=== PATIENT | female | born 1990 | race Caucasian/White ===

== ENCOUNTER 2017-10-14 16:55 | Emergency (ER) | payer OTHER ==
[2017-10-14] MEDS ORDERED: ONDANSETRON HCL INJ/PF 4 MG/2 ML SDV IV ONE (17:09)
[2017-10-14] MEDS ORDERED: KETOROLAC TROMETHAMINE INJ/PF 30 MG/1 ML SDV IV ONE (17:09)
[2017-10-14] MEDS ORDERED: NORMAL SALINE 1000 ML 1,000 ML IV ONE (17:10)
--- NOTE | 2017-10-14 17:12 | ER Document Report ---
ED Medical Screen (RME) - General Chief Complaint: Flank Pain Stated Complaint: FLANK PAIN Time Seen by Provider: 10/14/17 17:09 Notes: 27 years old female presents today with left flank pain for the last 2 days associated with nausea. Denies any dysuria frequency urgency. Denies any fever chills. She says the pain is so severe, and laying down the floor complaining of pain. Denies any drug abuse Denies taking any pain medications. TRAVEL OUTSIDE OF THE [place] IN LAST 30 DAYS: No - Related Data Allergies/Adverse Reactions: No Known Allergies Allergy (Verified 05/30/13 19:10) Past Medical History - Past Medical History Cardiac Medical History: Denies: Hx Coronary Artery Disease, Hx DVT, Hx Hypertension Pulmonary Medical History: Denies: Hx Asthma, Hx Bronchitis Neurological Medical History: Denies: Hx Cerebrovascular Accident, Hx Migraine, Hx Seizures Endocrine Medical History: Denies: Hx Diabetes Mellitus Type 2, Hx Hypothyroidism Renal/ Medical History: Reports: Hx Kidney Stones. Denies: Hx Renal Insufficiency GI Medical History: Denies: Hx Gastritis, Hx Gastroesophageal Reflux Disease, Hx Hepatitis Infectious Medical History: Denies: Hx Hepatitis Past Surgical History: Reports: Hx Section, Hx Kidney (Renal Surgery), Hx Tubal Ligation - Immunizations Hx Diphtheria, Pertussis, Tetanus Vaccination: No Physical Exam - Vital signs Vitals: Temp Pulse Resp BP Pulse Ox 98.3 F 100 16 104/89 H 100 10/14/17 17:01 10/14/17 17:01 10/14/17 17:01 10/14/17 17:01 10/14/17 17:01 Course - Vital Signs Vital signs: Temp Pulse Resp BP Pulse Ox 98.3 F 100 16 104/89 H 100 10/14/17 17:01 10/14/17 17:01 10/14/17 17:01 10/14/17 17:01 10/14/17 17:01
--- NOTE | 2017-10-14 17:19 | ER Document Report ---
ED GI/ - General Chief Complaint: Flank Pain Stated Complaint: FLANK PAIN Time Seen by Provider: 10/14/17 17:09 TRAVEL OUTSIDE OF THE [place] IN LAST 30 DAYS: No - Related Data Allergies/Adverse Reactions: No Known Allergies Allergy (Verified 05/30/13 19:10) Past Medical History - Social History Smoking Status: Unknown if Ever Smoked Family History: Reviewed & Not Pertinent Patient has suicidal ideation: No Patient has homicidal ideation: No - Past Medical History Cardiac Medical History: Denies: Hx Coronary Artery Disease, Hx DVT, Hx Hypertension Pulmonary Medical History: Denies: Hx Asthma, Hx Bronchitis Neurological Medical History: Denies: Hx Cerebrovascular Accident, Hx Migraine, Hx Seizures Endocrine Medical History: Denies: Hx Diabetes Mellitus Type 2, Hx Hypothyroidism Renal/ Medical History: Reports: Hx Kidney Stones. Denies: Hx Peritoneal Dialysis, Hx Renal Insufficiency GI Medical History: Denies: Hx Gastritis, Hx Gastroesophageal Reflux Disease, Hx Hepatitis Infectious Medical History: Denies: Hx Hepatitis Past Surgical History: Reports: Hx Section, Hx Kidney (Renal Surgery), Hx Tubal Ligation - Immunizations Hx Diphtheria, Pertussis, Tetanus Vaccination: No Physical Exam - Vital signs Vitals: Temp Pulse Resp BP Pulse Ox 98.3 F 100 16 104/89 H 100 10/14/17 17:01 10/14/17 17:01 10/14/17 17:01 10/14/17 17:01 10/14/17 17:01 Course - Vital Signs Vital signs: Temp Pulse Resp BP Pulse Ox 98.3 F 100 16 104/89 H 100 10/14/17 17:01 10/14/17 17:01 10/14/17 17:01 10/14/17 17:01 10/14/17 17:01
[2017-10-14] MEDS ORDERED: KETOROLAC TROMETHAMINE 60 MG/2 ML SDV IM ONE (17:36)
[2017-10-14] MEDS ORDERED: DIAZEPAM 5 MG TABLET PO ONE (17:39)
--- NOTE | 2017-10-14 17:40 | ER Document Report ---
HPI - HPI Patient complains to provider of: Right low back pain Onset: This morning Onset/Duration: Sudden Pain Level: 5 Context: 27-year-old female stepped forward with a right foot and felt a sudden sharp pain in her right low back that radiates down the whole length of her leg. No saddle anesthesia. No fever or chills. No nausea vomiting or diarrhea. She does have a history of a kidney stone but there is no dysuria frequency or urgency. Pain is worse with movement. Associated Symptoms: None Exacerbated by: Movement Relieved by: Denies Similar symptoms previously: No Recently seen / treated by doctor: No - ROS ROS below otherwise negative: Yes Systems Reviewed and Negative: Yes All other systems reviewed and negative - REPRODUCTIVE Reproductive: DENIES: : - DERM Skin Color: Normal Past Medical History - General Information source: Patient - Social History Smoking Status: Current Every Day Smoker Frequency of alcohol use: None Drug Abuse: None Occupation: Unemployed Lives with: Family Family History: Reviewed & Not Pertinent Patient has suicidal ideation: No Patient has homicidal ideation: No Renal/ Medical History: Reports: Hx Kidney Stones Past Surgical History: Reports: Hx Section, Hx Kidney (Renal Surgery), Hx Tubal Ligation - Immunizations Hx Diphtheria, Pertussis, Tetanus Vaccination: No Vertical Provider Document - CONSTITUTIONAL Agree With Documented VS: Yes Exam Limitations: No Limitations General Appearance: Mild Distress - Patient is dramatic and asking her mother to help her to move - INFECTION CONTROL TRAVEL OUTSIDE OF THE [place] IN LAST 30 DAYS: No - HEENT HEENT: Normocephalic - NECK Neck: Supple - RESPIRATORY Respiratory: Breath Sounds Normal, No Respiratory Distress - CARDIOVASCULAR Cardiovascular: Regular Rate, Regular Rhythm - GI/ABDOMEN Gastrointestinal: Abdomen Soft, Abdomen Non-Tender - BACK Back: Normal Inspection Notes: no rash - MUSCULOSKELETAL/EXTREMETIES Musculoskeletal/Extremeties: MAEW, FROM, Tender - right SI joint tender into buttocks - NEURO Level of Consciousness: Awake, Alert Motor/Sensory: No Motor Deficit, No Sensory Deficit Deep Tendon Reflexes: 2+ - marvin ankle and patellar - DERM Integumentary: No Rash Course - Re-evaluation Re-evalutation: 10/14/17 18:10 Patient feels a lot better after the medication. I also showed her how to position to decrease the pain. When I used traction on her right leg it reduces the pain even further. - Vital Signs Vital signs: Temp Pulse Resp BP Pulse Ox 98.3 F 100 16 104/89 H 100 10/14/17 17:01 10/14/17 17:01 10/14/17 17:01 10/14/17 17:01 10/14/17 17:01 Discharge - Discharge Clinical Impression: Right sacral ileitis, Sciatica Condition: Good Disposition: HOME, SELF-CARE Instructions: Low Back Pain ([facility]), Muscle Relaxers ([facility]), Ibuprofen (General) ( [facility]), Acetaminophen, Warm Packs ([facility]), Chiropractor Additional Instructions: Tylenol up to 4000 mg per day Motrin 800 mg 3 times a day Warm compress Stretching exercises as discussed Flexeril up to 3 times a day as needed for muscle relaxer Return to the emergency room for any worsening of the symptoms Prescriptions: Ibuprofen [Motrin 800 mg Tablet] 800 mg PO Q8HP PRN #30 tab PRN Reason: Cyclobenzaprine HCl [Flexeril 10 Mg Tablet] 10 mg PO TIDP PRN #20 tablet PRN Reason: Referrals: MADHU MCARTHUR, PROFESS[employer]-C [Primary Care Provider] - Follow up as needed GABO E[facility]INGTON [place] [CHIROPRACTOR] - Follow up as needed
[2017-10-14 19:05] VITALS: BP 98/67
== END 2017-10-14 19:07 | disposition home or self-care (01) ==
LOC: ER 16:55
DX: M46.1 Sacroiliitis, not elsewhere classified (principal); M54.40 Lumbago with sciatica, unspecified side; F17.200 Nicotine dependence, unspecified, uncomplicated
CPT/HCPCS: 99283; 96372; J1885

== ENCOUNTER 2017-10-16 05:37 | Emergency (ER) | payer OTHER ==
[2017-10-16] MEDS ORDERED: MORPHINE SULFATE 10 MG/ML INJ IV ONE (06:42)
[2017-10-16] MEDS ORDERED: ONDANSETRON HCL INJ/PF 4 MG/2 ML SDV IV ONE (06:42)
[2017-10-16] MEDS ORDERED: NORMAL SALINE 1000 ML 1,000 ML IV ONE (06:42)
[2017-10-16] MEDS ORDERED: ACETAMINOPHEN 325 MG TABLET PO ONE (06:43)
[2017-10-16 07:01] LABS: ABSOLUTE LYMPHOCYTES (AUTO) 0.3 10^3/uL (0.5-4.7); ABSOLUTE MONOCYTES (AUTO) 0.9 10^3/uL (0.1-1.4); ABSOLUTE NEUT (AUTO) 12.7 10^3/uL (1.7-8.2); BASOPHILS % (AUTO) 0.2 % (0-2); HEMATOCRIT 39.7 % (36.0-47.0); HEMOGLOBIN 13.6 g/dL (12.0-15.5); LYMPHOCYTES % (AUTO) 2.2 % (13-45); MEAN CORPUSCULAR HEMOGLOBIN 30.2 pg (27.0-33.4); MEAN CORPUSCULAR HGB CONC 34.3 g/dL (32.0-36.0); MEAN CORPUSCULAR VOLUME 88 fl (80-97); MONOCYTES % (AUTO) 6.7 % (3-13); PLATELET COUNT 115 10^3/uL (150-450); RED CELL DISTRIBUTION WIDTH 14.6 % (11.5-14.0); SEGMENTED NEUTROPHILS % (AUTO) 90.9 % (42-78); TOTAL CELLS COUNTED % (AUTO) 100 %
--- NOTE | 2017-10-16 07:02 | ER Document Report ---
ED General - General Chief Complaint: Nausea/Vomiting Stated Complaint: VOMITING Time Seen by Provider: 10/16/17 06:41 TRAVEL OUTSIDE OF THE [place] IN LAST 30 DAYS: No - HPI Notes: 27-year-old female presents to the ER complaining of fever back pain headache. The patient stated about Saturday at 2 AM she began vomiting. She has had some pain in her back she states of her on her kidney. She is at increased urinary frequency. She has had nausea. Seen in the ER and diagnosed with sciatic nerve pain. However the patient still continued to have lower back pain and developed a fever. She also complains of headache diffuse muscle aches all over. Nausea vomiting a lot of abdominal cramping. She does have a history of kidney stones. History of kidney infections. She is very anxious. - Related Data Allergies/Adverse Reactions: No Known Allergies Allergy (Verified 05/30/13 19:10) Past Medical History - Social History Smoking Status: Unknown if Ever Smoked Family History: Reviewed & Not Pertinent Patient has suicidal ideation: No Patient has homicidal ideation: No - Past Medical History Cardiac Medical History: Denies: Hx Coronary Artery Disease, Hx DVT, Hx Hypertension Pulmonary Medical History: Denies: Hx Asthma, Hx Bronchitis Neurological Medical History: Denies: Hx Cerebrovascular Accident, Hx Migraine, Hx Seizures Endocrine Medical History: Denies: Hx Diabetes Mellitus Type 2, Hx Hypothyroidism Renal/ Medical History: Reports: Hx Kidney Stones. Denies: Hx Peritoneal Dialysis, Hx Renal Insufficiency GI Medical History: Denies: Hx Gastritis, Hx Gastroesophageal Reflux Disease, Hx Hepatitis Infectious Medical History: Denies: Hx Hepatitis Past Surgical History: Reports: Hx Section, Hx Kidney (Renal Surgery), Hx Tubal Ligation - Immunizations Hx Diphtheria, Pertussis, Tetanus Vaccination: No Review of Systems - Review of Systems Constitutional: Chills, Fever Cardiovascular: denies: Chest pain, Dyspnea Respiratory: denies: Cough, Hemoptysis, Short of breath, Wheezing Gastrointestinal: Abdomen distended, Abdominal pain, Nausea, Vomiting. denies: Diarrhea Genitourinary: Frequency, Urgency Female Genitourinary: denies: Heavy/abnormal periods, Vaginal bleeding, Vaginal odor Musculoskeletal: Muscle pain Neurological/Psychological: Headaches -: Yes All other systems reviewed and negative Physical Exam - Vital signs Vitals: Temp Pulse Resp BP Pulse Ox 100.6 F H 105 H 18 116/67 98 10/16/17 05:43 10/16/17 05:43 10/16/17 05:43 10/16/17 05:43 10/16/17 05:43 - Notes Notes: GENERAL_APPEARANCE: well_nourished, alert, cooperative, appears uncomfortable crying tearful VITALS: reviewed, see vital signs table. HEAD: no_swelling\tenderness on the head. EYES: PERRL, EOMI, conjunctiva_clear. NOSE: no_nasal_discharge. MOUTH: Slight decreased moisture. THROAT: no_throat_inflammation, no_airway_obstruction. no_lymphadenopathy NECK: supple, no_neck_tenderness, (-)thyromegaly. BACK: Right CVA_back_tenderness. CHEST_WALL: no_chest_tenderness. LUNGS: no_wheezing, no_rales, no_rhonchi, (-)accessory muscle use, good air exchange bilateral. HEART: normal_rate, normal_rhythm, normal_S1, normal_S2, (-)S3, (-)S4, no_ murmur, no_rub. ABDOMEN: normal_BS, soft, no_abd_tenderness, (-)guarding, (-)rebound, no_ organomegaly, no_abd_masses. EXTREMITIES:good pulses in all_extremities, no_swelling\tenderness in the extremities, no_edema. SKIN: warm, dry, good_color, no_rash. MENTAL_STATUS: speech_clear, oriented_X_3, anxious histrionic_affect, responds_ appropriately to questions. NEURO: Neg Motor or Sensory Deficits on exam, CN 2-12 intact, DTR 2+ symmetric x 4, No cerbellar signs Course - Re-evaluation Re-evalutation: 10/16/17 07:01 27-year-old female comes in with fever back pain headache muscle aches. Patient had increased urinary symptoms. Concern for pyelonephritis with sepsis. Will start the sepsis workup IV fluids. 10/16/17 09:47 Patient is found to have pyelonephritis. Patient was given IV antibiotics Rocephin. Something for pain she will be discharged home with antibiotics and something for pain. She is not vomiting and hopefully will be able to keep down medications. She did have a fever here does not appear septic. Lactic acid is normal. - Vital Signs Vital signs: Temp Pulse Resp BP Pulse Ox 98.9 F 105 H 13 108/69 97 10/16/17 09:27 10/16/17 05:43 10/16/17 07:04 10/16/17 07:04 10/16/17 07:04 - Laboratory Result Diagrams: 10/16/17 06:30 10/16/17 06:30 Laboratory results interpreted by me: 10/16/17 10/16/17 10/16/17 06:30 06:30 07:45 WBC 14.0 H RDW 14.6 H Plt Count 115 L Seg Neutrophils % 90.9 H Lymphocytes % 2.2 L Absolute Neutrophils 12.7 H Absolute Lymphocytes 0.3 L Sodium 135.5 L Carbon Dioxide 18 L Glucose 143 H Total Bilirubin 3.0 H Direct Bilirubin 0.5 H Urine Protein 30 H Urine Ketones TRACE H Urine Blood LARGE H Urine Urobilinogen 4.0 H Ur Leukocyte Esterase MODERATE H - Diagnostic Test Radiology reviewed: Image reviewed Radiology results interpreted by me: 10/16/17 09:47 Chest X-Ray 10/16/17 06:42 IMPRESSION: No acute cardiopulmonary findings. 10/16/17 09:47 CT scan shows right perinephric stranding likely due to pyelonephritis or passed stone - no stone was seen in the urinary tract. Discharge - Discharge Clinical Impression: Pyelonephritis Condition: Good Disposition: HOME, SELF-CARE Instructions: Pyelonephritis ([facility]) Additional Instructions: If not improving 24 hours return to the emergency department. If worse return as soon as possible otherwise follow-up with your family doctor Prescriptions: Ondansetron [Zofran Odt 4 mg Tablet] 1 - 2 tab PO Q4HP PRN #10 tab.rapdis PRN Reason: Cefuroxime Axetil [Ceftin 500 mg Tablet] 1 tab PO BID #20 tablet Hydrocodone/Acetaminophen [Salcha 5-325 Tablet] 1 - 2 tab PO ASDIR PRN #15 tab PRN Reason: Referrals: MADHU MCARTHUR FNP-C [Primary Care Provider] - Follow up as needed
[2017-10-16 07:04] LABS: ALANINE AMINOTRANSFERASE 27 U/L (9-52); ALBUMIN 3.6 g/dL (3.5-5.0); ALKALINE PHOSPHATASE 72 U/L (38-126); ANION GAP 16 (5-19); ASPARTATE AMINO TRANSFERASE 14 U/L (14-36); BILIRUBIN,DIRECT 0.5 mg/dL (0.0-0.4); BLOOD UREA NITROGEN 11 mg/dL (7-20); CALCIUM 8.8 mg/dL (8.4-10.2); CARBON DIOXIDE 18 mmol/L (22-30); CHLORIDE 102 mmol/L (98-107); CREATINE KINASE 127 U/L (30-135); GLUCOSE 143 mg/dL (75-110); POTASSIUM 3.9 mmol/L (3.6-5.0); SODIUM 135.5 mmol/L (137-145); TOTAL PROTEIN 6.6 g/dL (6.3-8.2)
--- NOTE | 2017-10-16 07:21 | RADIOLOGY REPORT (SQ) ---
EXAM DESCRIPTION: XR CHEST 1 VIEW COMPLETED DATE/TME: 10/16/2017 06:42 CLINICAL HISTORY: 27 years Female, fever COMPARISON: None. NUMBER OF VIEWS/TECHNIQUE: 1/AP FINDINGS: Adequate lung volume, clear parenchyma, normal cardiac silhouette, and intact bony thorax. IMPRESSION: No acute cardiopulmonary findings.
--- NOTE | 2017-10-16 07:50 | RADIOLOGY REPORT (SQ) ---
EXAM DESCRIPTION: CT ABDOMEN PELVIS WITHOUT IV CONTRAST COMPLETED DATE/TME: 10/16/2017 06:42 CLINICAL HISTORY: 27 years Female, fever(103) headache,n/v right sciatic nerve pain, lower abd pain. Comparison: None. Technique: No contrast. Coronal and sagittal reformat. This exam was performed according to our departmental dose-optimization program, which includes automated exposure control, adjustment of the mA and/or kV according to patient size and/or use of iterative reconstruction technique.[facility]: Dose Right [facility]: CareDose [facility]: Dose Right [facility]: Teradose 4D [facility]: [employer] LIMITATIONS: None Findings: Asymmetric mild diffuse engorgement of the right kidney and minimal right perinephric fat stranding with absence of a previous 0.2 right renal stone as compared with prior exam from May 2013 which may indicate a recently passed stone. No hydronephrosis and no hydroureter. No current radiopaque stone of the right renal collecting system. Punctate calyceal/renal stone of the left inferior renal pole. Mild fluid dilation of the ileum in the right lower abdomen measures up to 3.3 cm in diameter. Bilateral tubal ligation clips. No evidence of appendicitis. Likely normal appendix partially discerned. No significant free fluid. No free air. Unenhanced lower thorax, abdominopelvic structures, and musculoskeleton appear otherwise grossly unremarkable. Impression: 1. Prominent right kidney which may indicate a recently passed stone. Differential diagnosis includes right pyelonephritis. 2. Mild focal ileus of the ileum.
[2017-10-16] MEDS ORDERED: CEFTRIAXONE 1 GM/D5W RTU 50 ML IV ONE (08:15)
[2017-10-16 08:28] LABS: APPEARANCE,URINE SLIGHTLY-CLOUDY; BILIRUBIN,URINE NEGATIVE (NEGATIVE); COLOR,URINE YELLOW; GLUCOSE, URINE NEGATIVE (NEGATIVE); KETONES,URINE TRACE mg/dL (NEGATIVE); LEUKOCYTE ESTERASE,URINE MODERATE (NEGATIVE); NITRITE,URINE NEGATIVE (NEGATIVE); PROTEIN,URINE 30 mg/dL (NEGATIVE); URINE SPECIFIC GRAVITY 1.005
[2017-10-16] MEDS ORDERED: CEFTRIAXONE SODIUM 1,000 MG in NORMAL SALINE 50 ML IV ONE (09:00)
[2017-10-16 10:26] VITALS: BP 99/66
== END 2017-10-16 10:26 | disposition home or self-care (01) ==
LOC: ER 05:37
DX: N12 Tubulo-interstitial nephritis, not specified as acute or chronic (principal); R11.2 Nausea with vomiting, unspecified; N23 Unspecified renal colic; M54.5 Low back pain; R14.0 Abdominal distension (gaseous); R51 Headache; R50.9 Fever, unspecified; Z87.442 Personal history of urinary calculi; Z98.51 Tubal ligation status
CPT/HCPCS: 99284; 96361; 96375; 96365; 36415; 87040; 87086; 82550; 85025; 87077; 87088; 80053; 81001; 87186; 83605; 71045; 74176; J2270; J0696; J2405; J7030

== ENCOUNTER 2017-10-16 18:58 | Inpatient (IN) | payer OTHER ==
[2017-10-16] MEDS ORDERED: FENTANYL CITRATE INJ/PF 100 MCG/2 ML AMPUL IV ONE (20:17)
[2017-10-16] MEDS ORDERED: NORMAL SALINE 1000 ML 1,000 ML IV ONE (20:17)
--- NOTE | 2017-10-16 20:51 | ER Document Report ---
ED Medical Screen (RME) - General Chief Complaint: Flank Pain Stated Complaint: FLANK PAIN Time Seen by Provider: 10/16/17 20:13 Mode of Arrival: Wheelchair TRAVEL OUTSIDE OF THE [place] IN LAST 30 DAYS: No - HPI Patient complains to provider of: Worsening pain and inability to tolerate p.o. Quality of pain: Fullness, Pressure Severity: Mild Pain Level: 5 - Related Data Allergies/Adverse Reactions: No Known Allergies Allergy (Verified 05/30/13 19:10) Past Medical History - Past Medical History Cardiac Medical History: Denies: Hx Coronary Artery Disease, Hx DVT, Hx Hypertension Pulmonary Medical History: Denies: Hx Asthma, Hx Bronchitis Neurological Medical History: Denies: Hx Cerebrovascular Accident, Hx Migraine, Hx Seizures Endocrine Medical History: Denies: Hx Diabetes Mellitus Type 2, Hx Hypothyroidism Renal/ Medical History: Reports: Hx Kidney Stones. Denies: Hx Peritoneal Dialysis, Hx Renal Insufficiency GI Medical History: Denies: Hx Gastritis, Hx Gastroesophageal Reflux Disease, Hx Hepatitis Infectious Medical History: Denies: Hx Hepatitis Past Surgical History: Reports: Hx Section, Hx Kidney (Renal Surgery), Hx Tubal Ligation - Immunizations Hx Diphtheria, Pertussis, Tetanus Vaccination: No Physical Exam - Vital signs Vitals: Temp Pulse Resp BP Pulse Ox 99.9 F 91 20 112/71 98 10/16/17 19:14 10/16/17 19:14 10/16/17 19:14 10/16/17 19:14 10/16/17 19:14 - Notes Notes: Uncomfortable appearing 27-year-old female Modestly diaphoretic Diffuse tenderness in the abdomen is profound tenderness to percussion Course - Re-evaluation Re-evalutation: 10/16/17 21:36 This 27-year-old female was evaluated earlier in the day for the second time for evaluation of flank and abdominal pain seems likely that her treatment for pyelonephritis was appropriate though she is continued to have worsening abdominal pain diaphoresis at home since discharge. Given that she is continuing to have pain and inability to tolerate p.o. we will plan for more aggressive evaluation at this time including another marker of infections. She did have an elevated bilirubin and does have abdominal pain with vomiting as such will consider possible biliary etiology as such we will obtain right upper quadrant ultrasound the patient. Will administer fentanyl for pain. Will obtain another urinalysis. She does have a history of stones which have been effective in the past but she did have a CT which did not demonstrate any impacted stones at this time. - Vital Signs Vital signs: Temp Pulse Resp BP Pulse Ox 99.9 F 91 20 112/71 98 10/16/17 19:14 10/16/17 19:14 10/16/17 19:14 10/16/17 19:14 10/16/17 19:14 Doctor's Discharge - Discharge Referrals: MADHU MCARTHUR, [employer]-C [Primary Care Provider] - Follow up as needed
[2017-10-16 21:42] LABS: HEMATOCRIT 38.8 % (36.0-47.0); HEMOGLOBIN 13.2 g/dL (12.0-15.5); MEAN CORPUSCULAR VOLUME 88 fl (80-97); PLATELET COUNT 126 10^3/uL (150-450); RED CELL DISTRIBUTION WIDTH 14.4 % (11.5-14.0); WHITE BLOOD COUNT 13.7 10^3/uL (4.0-10.5)
[2017-10-16 21:44] LABS: APPEARANCE,URINE CLEAR; BILIRUBIN,URINE NEGATIVE (NEGATIVE); COLOR,URINE YELLOW; GLUCOSE, URINE NEGATIVE (NEGATIVE); KETONES,URINE TRACE mg/dL (NEGATIVE); LEUKOCYTE ESTERASE,URINE TRACE (NEGATIVE); NITRITE,URINE NEGATIVE (NEGATIVE); PROTEIN,URINE NEGATIVE (NEGATIVE); URINE SPECIFIC GRAVITY 1.002
[2017-10-16 21:57] LABS: ALANINE AMINOTRANSFERASE 28 U/L (9-52); ALBUMIN 3.8 g/dL (3.5-5.0); ALKALINE PHOSPHATASE 74 U/L (38-126); ANION GAP 17 (5-19); ASPARTATE AMINO TRANSFERASE 18 U/L (14-36); BILIRUBIN,TOTAL 3.4 mg/dL (0.2-1.3); BLOOD UREA NITROGEN 11 mg/dL (7-20); CARBON DIOXIDE 17 mmol/L (22-30); CHLORIDE 104 mmol/L (98-107); GLUCOSE 108 mg/dL (75-110); LIPASE 48.9 U/L (23-300); POTASSIUM 4.1 mmol/L (3.6-5.0); SODIUM 138.4 mmol/L (137-145)
[2017-10-16 22:27] LABS: ABSOLUTE LYMPHOCYTES# (MANUAL) 0.4 10^3/uL (0.5-4.7); ABSOLUTE MONOCYTES # (MANUAL) 0.5 10^3/uL (0.1-1.4); ABSOLUTE NEUTROPHILS# (MANUAL) 12.7 10^3/uL (1.7-8.2); BAND NEUTROPHILS % (MANUAL) 4 % (3-5); BASOPHILS % (MANUAL) 0 % (0-2); EOSINOPHILS % (MANUAL) 0 % (0-6); LYMPHOCYTES % (MANUAL) 2 % (13-45); MONOCYTES % (MANUAL) 4 % (3-13); PLATELET COMMENT ADEQUATE; SEGMENTED NEUTROPHILS % (MAN) 89 % (42-78); TOTAL CELLS COUNTED 100
[2017-10-16] MEDS ORDERED: MORPHINE SULFATE 10 MG/ML INJ IV ONE (22:33)
[2017-10-16] MEDS ORDERED: ONDANSETRON HCL INJ/PF 4 MG/2 ML SDV IV ONE (22:33)
--- NOTE | 2017-10-16 22:35 | RADIOLOGY REPORT (SQ) ---
EXAM DESCRIPTION: U/S ABDOMEN LIMITED W/O DOP COMPLETED DATE/TIME: 10/16/2017 10:01 pm REASON FOR STUDY: query cholecyst COMPARISON: None. TECHNIQUE: Dynamic and static grayscale images acquired of the abdomen and recorded on PACS. Paddyo eleanor selected color Doppler and spectral images recorded. LIMITATIONS: None. FINDINGS: PANCREAS: Poorly seen. No abnormality in the head or body. LIVER: 13.9 cm. Normal echotexture. LIVER VASCULATURE: Normal directional flow of the main portal vein and hepatic veins. GALLBLADDER: There appear to be some small gallstones. There is no pericholecystic fluid. There is not appear to be significant wall thickening. ULTRASOUND-DETECTED GREEN'S SIGN: Positive INTRAHEPATIC DUCTS AND COMMON DUCT: CBD and intrahepatic ducts normal caliber. No filling defects. INFERIOR VENA CAVA: Normal flow. AORTA: No aneurysm. RIGHT KIDNEY: Normal size, 11.5 cm. Normal echogenicity. No solid or suspicious masses. No hydroneph rosis. No calcifications. PERITONEAL AND RIGHT PLEURAL SPACE: No ascites or effusions. OTHER: No other significant findings. IMPRESSION: Cholelithiasis with positive sonographic Green sign. TECHNICAL DOCUMENTATION: JOB ID: [id number] [employer]- All Rights Reserved Reading location - IP/workstation name: [email or web address] L
[2017-10-16] MEDS ORDERED: CEFTRIAXONE INJ 1000 MG VIAL ONE (22:39)
--- NOTE | 2017-10-16 22:42 | ER Document Report ---
ED General - General Chief Complaint: Flank Pain Stated Complaint: FLANK PAIN Time Seen by Provider: 10/16/17 20:13 Mode of Arrival: Wheelchair TRAVEL OUTSIDE OF THE [place] IN LAST 30 DAYS: No - HPI Onset: Other - 2 days Onset/Duration: Sudden Quality of pain: Cramping, Sharp Severity: Severe Pain Level: 5 Associated symptoms: Nausea, Vomiting Exacerbated by: Denies Relieved by: Denies Similar symptoms previously: Yes Recently seen / treated by doctor: Yes - Related Data Allergies/Adverse Reactions: No Known Allergies Allergy (Verified 05/30/13 19:10) Past Medical History - Social History Smoking Status: Unknown if Ever Smoked Family History: Reviewed & Not Pertinent Patient has suicidal ideation: No Patient has homicidal ideation: No - Past Medical History Cardiac Medical History: Denies: Hx Coronary Artery Disease, Hx DVT, Hx Hypertension Pulmonary Medical History: Denies: Hx Asthma, Hx Bronchitis Neurological Medical History: Denies: Hx Cerebrovascular Accident, Hx Migraine, Hx Seizures Endocrine Medical History: Denies: Hx Diabetes Mellitus Type 2, Hx Hypothyroidism Renal/ Medical History: Reports: Hx Kidney Stones. Denies: Hx Peritoneal Dialysis, Hx Renal Insufficiency GI Medical History: Denies: Hx Gastritis, Hx Gastroesophageal Reflux Disease, Hx Hepatitis Infectious Medical History: Denies: Hx Hepatitis Past Surgical History: Reports: Hx Section, Hx Kidney (Renal Surgery), Hx Tubal Ligation - Immunizations Hx Diphtheria, Pertussis, Tetanus Vaccination: No Review of Systems - Review of Systems Constitutional: Chills, Fever EENT: No symptoms reported Cardiovascular: No symptoms reported Respiratory: No symptoms reported. denies: Cough Gastrointestinal: Abdominal pain, Nausea, Vomiting Genitourinary: Dysuria, Flank pain Female Genitourinary: No symptoms reported Musculoskeletal: Back pain Skin: No symptoms reported Hematologic/Lymphatic: No symptoms reported Neurological/Psychological: No symptoms reported -: Yes All other systems reviewed and negative Physical Exam - Vital signs Vitals: Temp Pulse Resp BP Pulse Ox 99.9 F 91 20 112/71 98 10/16/17 19:14 10/16/17 19:14 10/16/17 19:14 10/16/17 19:14 10/16/17 19:14 - General General appearance: Appears well, Alert In distress: Moderate - HEENT Head: Normocephalic, Atraumatic Eyes: Normal Pupils: PERRL - Respiratory Respiratory status: No respiratory distress Chest status: Nontender Breath sounds: Normal Chest palpation: Normal - Cardiovascular Rhythm: Regular Heart sounds: Normal auscultation Murmur: No - Abdominal Inspection: Normal Distension: No distension Bowel sounds: Normal Tenderness: Tender Organomegaly: No organomegaly - Back Back: Normal, Nontender - Extremities General upper extremity: Normal inspection, Nontender, Normal color, Normal ROM , Normal temperature General lower extremity: Normal inspection, Nontender, Normal color, Normal ROM , Normal temperature, Normal weight bearing. No: Reece's sign - Neurological Neuro grossly intact: Yes Cognition: Normal Orientation: AAOx4 [place] Coma Scale Eye Opening: Spontaneous Rohan Coma Scale Verbal: Oriented Rohan Coma Scale Motor: Obeys Commands Rohan Coma Scale Total: 15 Speech: Normal Motor strength normal: LUE, RUE, LLE, RLE Sensory: Normal - Psychological Associated symptoms: Normal affect, Normal mood - Skin Skin Temperature: Warm Skin Moisture: Dry Skin Color: Normal Course - Vital Signs Vital signs: Temp Pulse Resp BP Pulse Ox 99.9 F 91 20 112/71 98 10/16/17 19:14 10/16/17 19:14 10/16/17 19:14 10/16/17 19:14 10/16/17 19:14 - Laboratory Result Diagrams: 10/16/17 21:10 10/16/17 21:10 Laboratory results interpreted by me: 10/16/17 10/16/17 10/16/17 21:10 21:10 21:10 WBC 13.7 H RDW 14.4 H Plt Count 126 L Seg Neuts % (Manual) 89 H Lymphocytes % (Manual) 2 L Abs Neuts (Manual) 12.7 H Abs Lymphs (Manual) 0.4 L Carbon Dioxide 17 L Est GFR (Non-Af Amer) 58 L Total Bilirubin 3.4 H Direct Bilirubin 1.0 H Urine Ketones TRACE H Urine Blood LARGE H Urine Urobilinogen 2.0 H Ur Leukocyte Esterase TRACE H Discharge - Discharge Clinical Impression: Pyelonephritis, Flank pain, acute Condition: Stable Disposition: ADMITTED INPATIENT Admitting Provider: Hospitalist Unit Admitted: Medical Floor Referrals: MADHU MCARTHUR FNP-C [Primary Care Provider] - Follow up as needed
[2017-10-16] MEDS ORDERED: CEFTRIAXONE 1 GM/D5W RTU 1 GM/50 ML RTUPB IV SCH (23:00)
--- NOTE | 2017-10-17 00:42 | PDOC H&P ---
History of Present Illness Admission Date/PCP: 10/16/17 22:46 LAURA LOPEZ-C Patient complains of: Flank pain, nausea vomiting, fever History of Present Illness: SIDNEY JULIEN is a 27 year old female with history of nephrolithiasis presents to the emergency room with worsening of abdominal pain and flank pain along with nausea vomiting and fever. Patient was seen in the emergency room earlier today and she was diagnosed with pyelonephritis and was discharged home with oral antibiotic. However patient returns back to the emergency room with worsening of symptoms including right flank pain and back pain along with nausea vomiting. Patient's reporting urinary symptoms with discomfort while urination without dysuria or hematuria. CT abdomen was done on prior visit shows right-sided kidney abnormality with possibility of passed stone or pyelonephritis. Her blood culture was done on prior visit is now growing gram-negative rods. On arrival to emergency room patient is tachycardic but afebrile. Her laboratory workup shows white count of 13,000. UA is positive again. Patient was given Rocephin and was referred to hospitalist service for admission. Past Medical History Cardiac Medical History: Denies: Coronary Artery Disease, DVT, Hypertension Pulmonary Medical History: Denies: Asthma, Bronchitis Neurological Medical History: Denies: Migraine, Seizures Endocrine Medical History: Denies: Diabetes Mellitus Type 2, Hypothyroidism GI Medical History: Denies: Gastroesophageal Reflux Disease, Hepatitis Past Surgical History Past Surgical History: Reports: Section, Tubal Ligation Social History Information Source: Patient Smoking Status: Unknown if Ever Smoked - Advance Directive Resuscitation Status: Full Code Family History Family History: Reviewed & Not Pertinent Parental Family History Reviewed: No Children Family History Reviewed: No Sibling(s) Family History Reviewed.: No Medication/Allergy Home Medications: Oxycodone HCl/Acetaminophen [Percocet 5-325 mg Tablet] 1 - 2 tab PO ASDIR PRN # 15 tablet 05/30/13 Tamsulosin HCl [Flomax 0.4 mg Cap.sr] 0.4 mg PO DAILY #7 cap.sr.24h 05/30/13 Cyclobenzaprine HCl [Flexeril 10 Mg Tablet] 10 mg PO TIDP PRN #20 tablet Ibuprofen [Motrin 800 mg Tablet] 800 mg PO Q8HP PRN #30 tab 10/14/17 Cefuroxime Axetil [Ceftin 500 mg Tablet] 1 tab PO BID #20 tablet 08/01/18 Hydrocodone/Acetaminophen [Warren 5-325 Tablet] 1 - 2 tab PO ASDIR PRN #15 tab Ondansetron [Zofran Odt 4 mg Tablet] 1 - 2 tab PO Q4HP PRN #10 tab.rapdis Allergies/Adverse Reactions: No Known Allergies Allergy (Verified 05/30/13 19:10) Review of Systems All systems: reviewed and no additional remarkable complaints except as stated Physical Exam Vital Signs: Temp Pulse Resp BP Pulse Ox 99.9 F 91 20 112/71 98 10/16/17 19:14 10/16/17 19:14 10/16/17 19:14 10/16/17 19:14 10/16/17 19:14 General appearance: PRESENT: cooperative, mild distress, well-developed, well- nourished Head exam: PRESENT: atraumatic, normocephalic Eye exam: ABSENT: conjunctival injection, conjunctiva pink, conjunctiva pale, EOMI, nystagmus, periorbital swelling, PERRLA, scleral icterus, other Ear exam: ABSENT: bleeding, drainage, normal external ear exam, TM's normal bilaterally, other Mouth exam: PRESENT: dry mucosa Neck exam: ABSENT: carotid bruit, JVD Respiratory exam: PRESENT: clear to auscultation marvin. ABSENT: rhonchi, wheezes Cardiovascular exam: PRESENT: RRR, +S1, +S2, tachycardia. ABSENT: gallop, systolic murmur GI/Abdominal exam: PRESENT: normal bowel sounds, organolmegaly, soft, tenderness - Right flank and lower back tenderness. ABSENT: Green's sign Rectal exam: PRESENT: deferred Gentrourinary exam: ABSENT: ecchymosis, erythema, lacerations, lesions, scrotal swelling, testicular tenderness, urethral discharge, indwelling catheter, other Extremities exam: ABSENT: calf tenderness, clubbing, full ROM, joint swelling, pedal edema, tenderness, +1 edema, +2 edema, other Musculoskeletal exam: PRESENT: ambulatory Neurological exam: PRESENT: alert, altered, awake, oriented to person, oriented to place, oriented to time, oriented to situation. ABSENT: motor sensory deficit Skin exam: ABSENT: rash Results Laboratory Results: All labs reviewed. Impressions: Abdomen Ultrasound 10/16/17 20:17 IMPRESSION: Cholelithiasis with positive sonographic Green sign. Status: Image reviewed by me Assessment & Plan - Diagnosis (1) Pyelonephritis Is this a current diagnosis for this admission?: Yes Plan: Patient with acute pyelonephritis and bacteremia. No evidence of renal stone on CT. Patient will be admitted as inpatient for IV antibiotic and IV fluids. Will follow final blood culture and urine culture. (2) Bacteremia Is this a current diagnosis for this admission?: Yes Plan: Patient with gram-negative bacteremia in 1 out of 2 bottles. Patient will be continued on IV antibiotic. Patient does not appear septic. (3) Nephrolithiasis Is this a current diagnosis for this admission?: No Plan: No evidence of renal stone on CT. Patient has a prior history of nephrolithiasis. - Time Time Spent: 30 to 50 Minutes - Inpatient Certification Medical Necessity: Need For IV Fluids, Need for IV Antibiotics
[2017-10-17] MEDS: NORMAL SALINE 1000 ML 1,000 ML IV PRN ×2 (01:25→21:31)
[2017-10-17] MEDS: OXYCODONE-ACETAMINOPHEN 5-325 MG TABLET PO PRN ×4 (04:14→22:15)
[2017-10-17] MEDS: ONDANSETRON HCL INJ/PF 4 MG/2 ML SDV IV PRN ×2 (04:14→21:29)
[2017-10-17 04:28] LABS: ABSOLUTE LYMPHOCYTES (AUTO) 0.4 10^3/uL (0.5-4.7); ABSOLUTE MONOCYTES (AUTO) 0.6 10^3/uL (0.1-1.4); BASOPHILS % (AUTO) 0.2 % (0-2); EOSINOPHILS % (AUTO) 0.2 % (0-6); HEMATOCRIT 33.8 % (36.0-47.0); HEMOGLOBIN 11.5 g/dL (12.0-15.5); LYMPHOCYTES % (AUTO) 5.1 % (13-45); MEAN CORPUSCULAR VOLUME 88 fl (80-97); PLATELET COUNT 102 10^3/uL (150-450); RED BLOOD COUNT 3.82 10^6/uL (3.72-5.28); RED CELL DISTRIBUTION WIDTH 14.2 % (11.5-14.0); SEGMENTED NEUTROPHILS % (AUTO) 86.5 % (42-78); TOTAL CELLS COUNTED % (AUTO) 100 %; WHITE BLOOD COUNT 8.1 10^3/uL (4.0-10.5)
[2017-10-17 04:39] LABS: ANION GAP 13 (5-19); BLOOD UREA NITROGEN 11 mg/dL (7-20); CALCIUM 8.2 mg/dL (8.4-10.2); CARBON DIOXIDE 17 mmol/L (22-30); CHLORIDE 108 mmol/L (98-107); GLUCOSE 96 mg/dL (75-110); POTASSIUM 3.9 mmol/L (3.6-5.0); SODIUM 138.4 mmol/L (137-145)
[2017-10-17] MEDS: ENOXAPARIN SODIUM INJ 40 MG/0.4 ML DISP.SYRIN SUBCUT SCH (10:05)
--- NOTE | 2017-10-17 18:44 | PDOC PROGRESS REPORT ---
Subjective Progress Note for:: 10/17/17 Subjective:: 27 years old white female with history of kidney stones comes to the emergency room due to right flank pain with nausea and vomiting. Blood and urine cultures positive for gram-negative rods She is little better and able to tolerate some fluids today Reason For Visit: PYELONEPHRITIS, BACTEREMIA Physical Exam Vital Signs: Temp Pulse Resp BP Pulse Ox 99.8 F 86 16 106/65 95 10/17/17 18:06 10/17/17 18:06 10/17/17 18:06 10/17/17 18:06 10/17/17 18:06 Intake & Output 10/16/17 10/17/17 10/18/17 06:59 06:59 06:59 Intake Total 1000 Output Total 300 Balance 1000 -300 Weight 165 lb 5.547 oz Exam: Patient no acute distress Alert oriented to time place person No anxiety or depression Head atraumatic normocephalic Pupils are equal reactive Regular rate and rhythm Lungs clear no distress Abdomen moderate generalized tenderness with right CVA tenderness nondistended Neurological exam unremarkable Results Laboratory Results: 10/17/17 03:55 10/17/17 03:55 10/17/17 10/17/17 03:55 03:55 WBC 8.1 RBC 3.82 Hgb 11.5 L Hct 33.8 L MCV 88 MCH 30.0 MCHC 34.0 RDW 14.2 H Plt Count 102 L Seg Neutrophils % 86.5 H Lymphocytes % 5.1 L Monocytes % 8.0 Eosinophils % 0.2 Basophils % 0.2 Absolute Neutrophils 7.0 Absolute Lymphocytes 0.4 L Absolute Monocytes 0.6 Absolute Eosinophils 0.0 Absolute Basophils 0.0 Sodium 138.4 Potassium 3.9 Chloride 108 H Carbon Dioxide 17 L Anion Gap 13 BUN 11 Creatinine 1.06 Est GFR ( Amer) > 60 Est GFR (Non-Af Amer) > 60 Glucose 96 Calcium 8.2 L Impressions: Abdomen Ultrasound 10/16/17 20:17 IMPRESSION: Cholelithiasis with positive sonographic Green sign. Assessment & Plan - Diagnosis (1) Bacteremia Is this a current diagnosis for this admission?: Yes Plan: Likely from pyelonephritis Continue IV antibiotics and IV fluids Follow final culture results (2) Flank pain, acute Is this a current diagnosis for this admission?: Yes Plan: IV analgesics as needed (3) Pyelonephritis Is this a current diagnosis for this admission?: Yes Plan: Treatment with antibiotics and IV fluids and antiemetics
[2017-10-17] MEDS: ACETAMINOPHEN 325 MG TABLET PO PRN (21:29)
[2017-10-17] MEDS ORDERED: CEFTRIAXONE 1 GM/D5W RTU 1 GM/50 ML RTUPB IV SCH (22:00)
[2017-10-17] MEDS ORDERED: CEFTRIAXONE SODIUM 1,000 MG in DEXTROSE 5%-WATER 50 ML IV SCH (22:00)
[2017-10-18] MEDS: OXYCODONE-ACETAMINOPHEN 5-325 MG TABLET PO PRN ×2 (04:30→17:07)
[2017-10-18 05:44] LABS: ABSOLUTE EOSINOPHILS # (AUTO) 0.1 10^3/uL (0.0-0.6); ABSOLUTE LYMPHOCYTES (AUTO) 0.7 10^3/uL (0.5-4.7); ABSOLUTE MONOCYTES (AUTO) 0.5 10^3/uL (0.1-1.4); ABSOLUTE NEUT (AUTO) 4.1 10^3/uL (1.7-8.2); BASOPHILS % (AUTO) 0.3 % (0-2); HEMATOCRIT 37.2 % (36.0-47.0); HEMOGLOBIN 12.6 g/dL (12.0-15.5); LYMPHOCYTES % (AUTO) 12.5 % (13-45); MEAN CORPUSCULAR HGB CONC 33.8 g/dL (32.0-36.0); MEAN CORPUSCULAR VOLUME 89 fl (80-97); MONOCYTES % (AUTO) 8.8 % (3-13); PLATELET COUNT 118 10^3/uL (150-450); RED BLOOD COUNT 4.19 10^6/uL (3.72-5.28); RED CELL DISTRIBUTION WIDTH 14.7 % (11.5-14.0); SEGMENTED NEUTROPHILS % (AUTO) 77.4 % (42-78); TOTAL CELLS COUNTED % (AUTO) 100 %; WHITE BLOOD COUNT 5.3 10^3/uL (4.0-10.5)
[2017-10-18 05:54] LABS: ALANINE AMINOTRANSFERASE 21 U/L (9-52); ALBUMIN 3.5 g/dL (3.5-5.0); ALKALINE PHOSPHATASE 69 U/L (38-126); ANION GAP 13 (5-19); ASPARTATE AMINO TRANSFERASE 21 U/L (14-36); BILIRUBIN,DIRECT 0.6 mg/dL (0.0-0.4); BILIRUBIN,TOTAL 1.3 mg/dL (0.2-1.3); BLOOD UREA NITROGEN 10 mg/dL (7-20); CALCIUM 8.5 mg/dL (8.4-10.2); CARBON DIOXIDE 21 mmol/L (22-30); CHLORIDE 110 mmol/L (98-107); GLUCOSE 134 mg/dL (75-110); POTASSIUM 4.1 mmol/L (3.6-5.0); SODIUM 144.3 mmol/L (137-145); TOTAL PROTEIN 6.8 g/dL (6.3-8.2)
[2017-10-18] MEDS: NORMAL SALINE 1000 ML 1,000 ML IV PRN ×2 (07:28→18:31)
[2017-10-18] MEDS: ONDANSETRON HCL INJ/PF 4 MG/2 ML SDV IV PRN (08:18)
[2017-10-18] MEDS: ACETAMINOPHEN 325 MG TABLET PO PRN ×2 (08:18→21:08)
[2017-10-18] MEDS: ENOXAPARIN SODIUM INJ 40 MG/0.4 ML DISP.SYRIN SUBCUT SCH (09:32)
[2017-10-18] MEDS ORDERED: CIPROFLOXACIN HCL 500 MG TABLET PO SCH (13:00)
[2017-10-18] MEDS: CIPROFLOXACIN HCL 500 MG TABLET PO SCH (17:07)
--- NOTE | 2017-10-18 17:41 | PDOC PROGRESS REPORT ---
Subjective Progress Note for:: 10/18/17 Subjective:: 27 years old white female with history of kidney stones comes to the emergency room due to right flank pain with nausea and vomiting. urine and blood culture positive for E. coli and the patient was switched to orals ciprofloxacin She is tolerating diet so far but she is still complaining of pain right upper quadrant and right flank HIDA scan was ordered but results are pending Reason For Visit: PYELONEPHRITIS, BACTEREMIA Physical Exam Vital Signs: Temp Pulse Resp BP Pulse Ox 98.5 F 67 16 113/67 99 10/18/17 11:51 10/18/17 14:00 10/18/17 11:51 10/18/17 11:51 10/18/17 11:51 Intake & Output 10/17/17 10/18/17 10/19/17 06:59 06:59 06:59 Intake Total 1000 1316 1915 Output Total 300 Balance 1000 1016 1915 Weight 172 lb 13.478 oz General appearance: PRESENT: cooperative. ABSENT: no acute distress Head exam: ABSENT: atraumatic Eye exam: ABSENT: conjunctival injection, conjunctiva pale Ear exam: ABSENT: bleeding, drainage Throat exam: ABSENT: post pharyngeal erythema Neck exam: ABSENT: JVD, tenderness, thyromegaly Respiratory exam: PRESENT: clear to auscultation marvin. ABSENT: accessory muscle use, rales, rhonchi Cardiovascular exam: PRESENT: RRR. ABSENT: diastolic murmur, rubs, systolic murmur Pulses: PRESENT: normal carotid pulses GI/Abdominal exam: PRESENT: Green's sign, normal bowel sounds, tenderness. ABSENT: ascites, distended Neurological exam: PRESENT: alert, awake, oriented to person, oriented to place , oriented to time, oriented to situation, CN II-XII grossly intact. ABSENT: motor sensory deficit Results Laboratory Results: 10/18/17 04:53 10/18/17 04:53 10/18/17 10/18/17 04:53 04:53 WBC 5.3 RBC 4.19 Hgb 12.6 Hct 37.2 MCV 89 MCH 30.0 MCHC 33.8 RDW 14.7 H Plt Count 118 L Seg Neutrophils % 77.4 Lymphocytes % 12.5 L Monocytes % 8.8 Eosinophils % 1.0 Basophils % 0.3 Absolute Neutrophils 4.1 Absolute Lymphocytes 0.7 Absolute Monocytes 0.5 Absolute Eosinophils 0.1 Absolute Basophils 0.0 Sodium 144.3 Potassium 4.1 Chloride 110 H Carbon Dioxide 21 L Anion Gap 13 BUN 10 Creatinine 1.05 Est GFR ( Amer) > 60 Est GFR (Non-Af Amer) > 60 Glucose 134 H Calcium 8.5 Total Bilirubin 1.3 AST 21 ALT 21 Alkaline Phosphatase 69 Total Protein 6.8 Albumin 3.5 Impressions: Abdomen Ultrasound 10/16/17 20:17 IMPRESSION: Cholelithiasis with positive sonographic Green sign. Assessment & Plan - Diagnosis (1) Bacteremia Is this a current diagnosis for this admission?: Yes Plan: Likely from pyelonephritis Ulcers positive for E. coli Now on p.o. Cipro (2) Flank pain, acute Is this a current diagnosis for this admission?: Yes Plan: IV analgesics as needed Improved (3) Pyelonephritis Is this a current diagnosis for this admission?: Yes Plan: Treatment with antibiotics and IV fluids and antiemetics (4) Cholelithiasis Is this a current diagnosis for this admission?: Yes Plan: Positive Green sign HIDA scan ordered and results are pending
--- NOTE | 2017-10-18 17:41 | RADIOLOGY REPORT (SQ) ---
EXAM DESCRIPTION: NM HIDA SCAN COMPLETED DATE/TIME: 10/18/2017 5:14 pm REASON FOR STUDY: gall stones COMPARISON: Ultrasound 10/16/2017 RADIONUCLIDE AND DOSE: DOSAGE RADIONUCLIDE: 5.44 millicuries Tc99m Mebrofenin. DOSAGE MORPHINE: Not required. The route of agent administration: Intravenous TECHNIQUE: Serial imaging right upper quadrant up to 60 minutes following injection of radionuclide. Patient imaged AP and Right Lateral. LIMITATIONS: None. FINDINGS: LIVER: Normal visualization without areas of photopenia. INTRA-HEPATIC BILE DUCTS: Temporal visualization normal. No dilatation. COMMON BILE DUCT: Normal without dilatation or delayed visualization. GALLBLADDER: Normal visualization. OTHER: No other significant finding. IMPRESSION: NORMAL STUDY WITHOUT CYSTIC OR COMMON DUCT OBSTRUCTION. TECHNICAL DOCUMENTATION: JOB ID: [id number] [id number] 2010 [employer]- All Rights Reserved Reading location - IP/workstation name: [email or web address]
[2017-10-19] MEDS: OXYCODONE-ACETAMINOPHEN 5-325 MG TABLET PO PRN ×2 (00:18→06:14)
[2017-10-19 04:37] LABS: ABSOLUTE EOSINOPHILS # (AUTO) 0.1 10^3/uL (0.0-0.6); ABSOLUTE LYMPHOCYTES (AUTO) 0.9 10^3/uL (0.5-4.7); ABSOLUTE MONOCYTES (AUTO) 0.7 10^3/uL (0.1-1.4); ABSOLUTE NEUT (AUTO) 3.3 10^3/uL (1.7-8.2); BASOPHILS % (AUTO) 0.5 % (0-2); EOSINOPHILS % (AUTO) 2.1 % (0-6); HEMATOCRIT 30.5 % (36.0-47.0); LYMPHOCYTES % (AUTO) 18.4 % (13-45); MEAN CORPUSCULAR HEMOGLOBIN 30.4 pg (27.0-33.4); MEAN CORPUSCULAR HGB CONC 34.6 g/dL (32.0-36.0); MEAN CORPUSCULAR VOLUME 88 fl (80-97); MONOCYTES % (AUTO) 13.3 % (3-13); PLATELET COUNT 120 10^3/uL (150-450); RED BLOOD COUNT 3.47 10^6/uL (3.72-5.28); RED CELL DISTRIBUTION WIDTH 14.6 % (11.5-14.0); SEGMENTED NEUTROPHILS % (AUTO) 65.7 % (42-78); TOTAL CELLS COUNTED % (AUTO) 100 %; WHITE BLOOD COUNT 5.1 10^3/uL (4.0-10.5)
[2017-10-19 04:58] LABS: ALANINE AMINOTRANSFERASE 34 U/L (9-52); ALBUMIN 2.7 g/dL (3.5-5.0); ALKALINE PHOSPHATASE 58 U/L (38-126); ANION GAP 13 (5-19); ASPARTATE AMINO TRANSFERASE 16 U/L (14-36); BILIRUBIN,DIRECT 0.4 mg/dL (0.0-0.4); BILIRUBIN,TOTAL 0.7 mg/dL (0.2-1.3); BLOOD UREA NITROGEN 8 mg/dL (7-20); CALCIUM 8.2 mg/dL (8.4-10.2); CARBON DIOXIDE 20 mmol/L (22-30); CHLORIDE 112 mmol/L (98-107); GLUCOSE 94 mg/dL (75-110); POTASSIUM 3.8 mmol/L (3.6-5.0); SODIUM 144.5 mmol/L (137-145); TOTAL PROTEIN 5.3 g/dL (6.3-8.2)
[2017-10-19 05:13] LABS: HEMOGLOBIN 10.5 g/dL (12.0-15.5)
[2017-10-19] MEDS: CIPROFLOXACIN HCL 500 MG TABLET PO SCH (06:16)
[2017-10-19 08:22] VITALS: BP 96/62
--- NOTE | 2017-10-19 15:27 | PDOC DISCHARGE SUMMARY ---
General - Admit/Disc Date/PCP Admission Date/Primary Care Provider: 10/16/17 22:46 LAURA LOPEZ-Domitila Discharge Date: 10/19/17 - Discharge Diagnosis (1) Bacteremia Is this a current diagnosis for this admission?: Yes (2) Flank pain, acute Is this a current diagnosis for this admission?: Yes (3) Pyelonephritis Is this a current diagnosis for this admission?: Yes (4) Cholelithiasis Is this a current diagnosis for this admission?: Yes - Additional Information Resuscitation Status: Full Code Discharge Diet: As Tolerated Discharge Activity: Activity As Tolerated Prescriptions: Ciprofloxacin HCl [Cipro 500 mg Tablet] 500 mg PO Q12A #14 tablet Oxycodone HCl/Acetaminophen [Percocet 5-325 mg Tablet] 1 tab PO Q6HP PRN #10 tablet PRN Reason: Saccharomyces Boulardii [Florastor] 250 mg PO BID #14 capsule Home Medications: Ciprofloxacin HCl [Cipro 500 mg Tablet] 500 mg PO Q12A #14 tablet 10/19/17 Oxycodone HCl/Acetaminophen [Percocet 5-325 mg Tablet] 1 tab PO Q6HP PRN #10 tablet 10/19/17 Saccharomyces Boulardii [Florastor] 250 mg PO BID #14 capsule 10/19/17 History of Present Illness History of Present Illness: SIDNEY JULIEN is a 27 year old female The patient has history of nephrolithiasis. She comes to the emergency room due to flank pain nausea and vomiting. She was diagnosed with pyelonephritis. Hospital Course Hospital Course: Urine and blood culture positive for E. coli. Her ultrasound was positive for gallstones but HIDA scan was negative She was started on ceftriaxone and was discharged on oral Cipro She was able to tolerate diet and was doing very good and asymptomatic prior to discharge Physical Exam Vital Signs: Temp Pulse Resp BP Pulse Ox 98.4 F 78 16 96/62 L 98 10/19/17 09:15 10/19/17 09:15 10/19/17 09:15 10/19/17 09:15 10/19/17 09:15 Intake & Output 10/18/17 10/19/17 10/20/17 06:59 06:59 06:59 Intake Total 1316 4173 Output Total 300 Balance 1016 4173 Weight 172 lb 13.478 oz 172 lb 2.896 oz General appearance: PRESENT: cooperative. ABSENT: no acute distress Head exam: PRESENT: atraumatic, normocephalic Eye exam: ABSENT: conjunctival injection, periorbital swelling Ear exam: ABSENT: bleeding, drainage Throat exam: ABSENT: post pharyngeal erythema Neck exam: ABSENT: carotid bruit, JVD, lymphadenopathy, thyromegaly Respiratory exam: PRESENT: clear to auscultation marvin. ABSENT: rales, rhonchi, wheezes GI/Abdominal exam: PRESENT: normal bowel sounds, soft. ABSENT: distended, guarding, mass, organolmegaly, rebound, tenderness Neurological exam: PRESENT: alert, awake, oriented to person, oriented to place , oriented to time, oriented to situation, CN II-XII grossly intact. ABSENT: motor sensory deficit Results Laboratory Results: 10/19/17 03:45 10/19/17 03:45 10/19/17 10/19/17 03:45 03:45 WBC 5.1 RBC 3.47 L Hgb 10.5 L D Hct 30.5 L MCV 88 MCH 30.4 MCHC 34.6 RDW 14.6 H Plt Count 120 L Seg Neutrophils % 65.7 Lymphocytes % 18.4 Monocytes % 13.3 H Eosinophils % 2.1 Basophils % 0.5 Absolute Neutrophils 3.3 Absolute Lymphocytes 0.9 Absolute Monocytes 0.7 Absolute Eosinophils 0.1 Absolute Basophils 0.0 Sodium 144.5 Potassium 3.8 Chloride 112 H Carbon Dioxide 20 L Anion Gap 13 BUN 8 Creatinine 0.93 Est GFR ( Amer) > 60 Est GFR (Non-Af Amer) > 60 Glucose 94 Calcium 8.2 L Total Bilirubin 0.7 AST 16 ALT 34 Alkaline Phosphatase 58 Total Protein 5.3 L Albumin 2.7 L Impressions: Abdomen Ultrasound 10/16/17 20:17 IMPRESSION: Cholelithiasis with positive sonographic Green sign. Hepatobiliary Scan Nuclear Medicine 10/17/17 00:00 IMPRESSION: NORMAL STUDY WITHOUT CYSTIC OR COMMON DUCT OBSTRUCTION. Qualifiers - * PATIENT BEING DISCHARGED WITH ANY OF THE FOLLOWING DIAGNOSIS: No
== END 2017-10-19 10:15 | disposition home or self-care (01) | DRG 690 ==
LOC: ER 18:58 → EH 22:46 → 5 10-17 17:51
PROVIDERS: ADMIT Internal Medicine; ATTEND Internal Medicine
DX: N10 Acute pyelonephritis (principal); R78.81 Bacteremia; R10.9 Unspecified abdominal pain; K80.20 Calculus of gallbladder without cholecystitis without obstruction; B96.20 Unspecified Escherichia coli [E. coli] as the cause of diseases classified elsewhere; Z87.442 Personal history of urinary calculi; Z79.899 Other long term (current) drug therapy
CPT/HCPCS: 36415; 76705; 78226; 80048; 80053; 81001; 81025; 83690; 85025; 96374; 99285; A9537; J0696; J2270; J2405; J3010; J7030; Q9969